=== PATIENT | male | born 2005 | race Caucasian/White ===

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

== ENCOUNTER 2025-06-18 12:09 | Outpatient (REF) | payer MEDICAID, SELFPAY ==
--- NOTE | ~2025-06-18 | XR_ITS ---
EXAMINATION: XR SHOULDER, RIGHT CLINICAL INFORMATION: pain with movement COMPARISON: None available. TECHNIQUE: AP external rotation, Grashey, scapular Y, and axillary views of the right shoulder. FINDINGS: The bones and soft tissues are normal. No fracture. Glenohumeral and acromioclavicular alignment is anatomic with normal joint space. No abnormal soft tissue calcifications. XR/XR shoulder RT min 2V IMPRESSION: Unremarkable right shoulder. Electronically signed by: Son Quarles MD 06/18/2025 12:36 PM EDT
--- NOTE | ~2025-06-18 | XR_ITS ---
EXAMINATION: XR CHEST CLINICAL INFORMATION: right chest wall pain COMPARISON: None available. TECHNIQUE: 2 views of the chest were obtained. FINDINGS: No significant abnormality is noted involving the heart, lungs, mediastinum, bony thorax or soft tissues. XR/XR chest 2V IMPRESSION: No acute disease Electronically signed by: Son Quarles MD 06/18/2025 12:36 PM EDT RP
--- OUTSIDE RECORDS SUMMARY | 2025-06-18 11:00 | XMS_ITS | Encounter Summary ---
Author Organization [employer] Address [address] [facility] [address] [place] [address] Care Team Providers Care Investigative Shopper Name Role Phone Elysia Arguello MD Primary Care Pro vider Reason for Visit * Reason Comments Sore Throat cough Encounter Details Date Type Department Care Team ([facility] st Contact Info) Description 06/18/2025 11:00 AM EDT Office Visit [facility] [place] [address] [place] [address] Acute pain of right shoulder (Primary Dx); [...] PM EDT Narrative 06/18/2025 12:39 PM EDT [address] [address] XRay Report Signed Patient: Fam Ortega MR#: [id number] : 2005 Acct:[id number] Age/Sex: 20 / M ADM Date: 06/18/25 Loc: HO.HHCX Attending Dr: Priyanka Bellamy Ordering Physician: Priyanka Bellamy Date of Service: 06/18/25 Procedure(s): XR chest 2V Accession Number(s): [id number] cc: Priyanka Bellamy Reason for Exam: right [...] 06/18/25 1236 DD/ 1227 TD/TT: 06/18/25 1227 Cabin Equipment Supervisor: Procedure Note Donotuseinterpreter, Image - 06/18/[address] [address] XRay Report Signed Patient: Fam Ortega SMR#: [id number] : 2005Acct:[id number] Age/Sex: 20 / MADM Date: 06/18/25 Loc: JONATHAN Attending Dr: Priyanka Bellamy Ordering Physician: Priyanka Bellamy Date of Service: 06/18/25 Procedure(s): XR chest 2V Accession Number(s): [id number] cc: Priyanka Bellamy Reason for Exam: right [...] 06/18/25 1236 DD/ 1227 TD/TT: 06/18/25 1227 Cabin Equipment Supervisor: us Priyanka Bellamy LEAD ANDROID DEVELOPER IMG XR PROCEDURES Final Result * XR Shoulder 2+ Views Right (06/18/2025 12:27 PM EDT) Anatomical Region Laterality Modality Upper Extremities, Shoulder Right Radi ographic Imaging 06/18/2025 12:2 7 PM EDT Narrative 06/18/2025 12:39 [place] [address] XRay Report Signed Patient: Fam Ortega MR#: [id number] : 2005 Acct:[id number] Age/Sex: 20 / M ADM Date: 06/18/25 Loc: JONATHAN Attending Dr: Priyanka Bellamy Ordering Physician: Priyanka Bellamy Date of Service: 06/18/25 Procedure(s): XR shoulder RT min 2V Accession Number(s): [id number] cc: Priyanka Bellamy Reason for Exam: pain [...] 06/18/25 1236 DD/ 1227 TD/TT: 06/18/25 1227 Cabin Equipment Supervisor: Procedure Note Donotuseinterpreter, Image - 06/18/2025 [place] [address] XRay Report Signed Patient: Fam Ortega [facility]#: [id number] : 2005Acct:[id number] Age/Sex: 20 / MADM Date: 06/18/25 Loc: HO.HHCX Attending Dr: Priyanka Bellamy Ordering Physician: Priyanka Bellamy Date of Service: 06/18/25 Procedure(s): XR shoulder RT min 2V Accession Number(s): [id number] cc: Priyanka Bellamy Reason for Exam: pain [...] 06/18/25 1236 DD/ 1227 TD/TT: 06/18/25 1227 Cabin Equipment Supervisor: us Priyanka Bellamy LEAD ANDROID DEVELOPER IMG XR PROCEDURES Final Result * POCT Rapid Influenza B ZIMMERMAN ID NOW (06/18/2025 11:49 AM EDT) Influenza B Negative Negative, Indeterminate [facility] QC Media Lot # [id number] [facility] Lot# Expiration Date [facility] Swab 06/18/2025 11:4 9 AM EDT Priyanka Bellamy LEAD ANDROID DEVELOPER POINT OF CARE TEST ENTER/EDIT O RDERABLES Final Result Performing Organization Address [facility]/ZIP Co de Phone Number [facility] [address] [place] [phone] * POCT Rapid Influenza A ZIMMERMAN ID NOW (06/18/2025 11:49 AM EDT) Influenza A Negative Negative, Indeterminate [facility] QC Media Lot # [id number] [facility] Lot# Expiration Date [facility] Swab 06/18/2025 11:4 9 AM EDT Priyanka Bellamy LEAD ANDROID DEVELOPER POINT OF CARE TEST ENTER/EDIT O RDERABLES Final Result Performing Organization Address [facility]/ZIP Co de Phone Number [facility] [address] [place] [phone] * POCT Rapid Strep A ZIMMERMAN ID NOW (06/18/2025 11:38 AM EDT) Rapid Strep A Screen Negative Negative, None Detected QC Media Lot # [id number] Lot# Expiration Date Swab 06/18/2025 11:3 8 AM EDT Priyanka Mia LEAD ANDROID DEVELOPER POINT OF CARE TEST ENTER/EDIT O RDERABLES Final Result * POCT Rapid Covid-19 BinaxNOW (06/18/2025 11:38 AM EDT) Rapid COVID Ag Negative QC Media Lot # [id number] Lot# Expiration Date Swab 06/18/2025 11:3 8 AM EDT Priyanka Bellamy LEAD ANDROID DEVELOPER POINT OF CARE TEST ENTER/EDIT O RDERABLES Final Result documented in this encounter Visit Diagnoses Diagnosis Acute pain of right shoulder- Primary Sore throat Acute pharyngitis Shortness of breath Right-sided chest wall pain Painful respiration documented in this encounter Additional Health Concerns Assessment Noted Time PHQ-9 Depression Total Score: 4 05/31/20 24 12:32 PM EDT documented as of this encounter Care Teams Investigative Shopper Relationship Specialty Start Date End Date Elysia Arguello MD [address] [place] [phone] PCP - General Internal Medicine 06/04/23 documented as of this encounter
--- OUTSIDE RECORDS SUMMARY | 2025-06-18 14:38 | XMS_ITS | Clinical Summary ---
Author Organization [employer] Address [address] [facility] 7 [place] [address] Care Team Providers Care Community Development Specialist Name Role Phone Elysia Arguello MD Primary Care Pro vider Allergies Active Allergy Reactions Criticality Noted Date Comments Amoxicillin Rash Low 05/31/2024 Medications ketoconazole (NIZOral) 2 % shampooIndicati ons:Seborrheic dermatitis Apply topically 2 (two) times a week. 120 mL Active Active Problems Problem Noted Date Diagnosed Date Folliculitis 11/17/2024 Seborrheic dermatitis 11/17/2024 Allergy to amoxicillin 06/01/2024 Healthcare maintenance 06/05/2023 Attention deficit hyperactivity disorder 023 Autism spectrum disorder 05/25/2023 Deviated nasal septum 05/25/2023 Posttraumatic stress disorder 05/25/2023 Resolved Problems Problem Noted Date Diagnosed Date Resolved Date Sore throat 03/15/2024 06/01/2024 Chronic bilateral low back p ain without sciatica 02/29/2024 06/01/2024 Encounters Date Type Department Care Team Description 06/18/2025 11:00 AM EDT Office Visit [facility] [address] [place] [address] Acute pain of right shoulder (Primary Dx); Sore throat; Shortness of breath; Right-sided chest wall pain 06/18/2025 Travel from Last 3 Months Immunizations Immunization Administration Dates Next Due DTaP 01/03/2009 DTaP, Unspecified 12/18/2005, 5,2004,05/30 HPV 9-Valent 05/23/2020,03/09/2019 Hep A, ped/adol, 2 dose 05/23/2020,03/09/2019 Hep B, Adolescent or Pediatric 2004 Hep B, Unspecified 2004,2004 Hep B, adult 03/24/2024,10/28/2023,09/22/2023 HiB, unspecified 2004,2004, 4 Hib (PRP-T) 12/18/2005 IPV 12/18/2008, 5,2004,05/30 Influenza injectable quadriv alent preservative free 06/04/2023,09/01/2017,06/24/2016,06/13,08/27/2014,08/16/2013,06/29/2012 ,05/24/2012 Influenza, seasonal, injecta ble, preservative free 05/31/2024 MMR 01/03/2009,03/26/2005 Meningococcal MCV4P ACYW-135 05/23/2020,03/23/20 16 Pfizer Covid-19 Vaccine 12+ 09/22/2023,,08/13/2021 Pneumococcal Conjugate PCV 13 03/26/2005 ,2004,2004,05/30 Tdap 2016 Varicella 01/03/2009,03/26/2005 Family History Medical History Relation Name Comments No Known Problems Brother No Known Problems Father No Known Problems Father's Brother No Known Problems Father's Sister No Known Problems Maternal Grandfather No Known Problems Maternal Grandmother No Known Problems Mother No Known Problems Mother's Brother No Known Problems Mother's Sister No Known Problems Other No Known Problems Paternal Grandfather No Known Problems Paternal Grandmother No Known Problems Sister Relation Name Status Comments Brother Father Father's Brother Father's Sister Maternal Grandfather Maternal Grandmother Mother Mother's Brother Mother's Sister Other Paternal Grandfather Paternal Grandmother Sister Social History Tobacco Use Types Packs/Day Years Used Date Smoking Tobacco: Never Smokeless Tobacco: Never Tobacco Cessation:Counseling Given: Not Answered Alcohol Use Standard Drinks/Week Comments Never 0 [...] not to disclose 2021 10:35 AM EDT Last Filed Vital Signs Vital Sign Reading [...] Mass Index 24.16 06/18/2025 11:33 AM EDT Plan of Treatment Health Maintenance Due Date Last Done Comments Disability Screening 2004 Alcohol/Substance Use Screening 2016 Family Planning (PISQ) 2019 Meningococcal B Vaccine (1 of 2 - Standard) 2020 SDOH Screening 05/28/2024 05/28/2023 Chlamydia and Gonorrhea Screening 07/27/2024 07/27/2023 COVID-19 Vaccine ( season) 2025 09/22/2023, 09/03/2021, 08/13/2021 Influenza Vaccine (#1) 2025 , 06/04/2023, 09/01/2017, Additional history exists Depression Screening 05/31/2025 05/31/2024, 05/31/20 24 Tobacco Screening 11/17/2025 11/17/2024 DTaP/Tdap/Td Vaccines (7 - Td or Tdap) 2026 2016, 01/03/2009, 12/18/2005, Additional history exists Zoster Vaccines (1 of 2) 2054 RSV Patients and Patients Aged 60 years or older (1 - 1-dose 75+ series) 2079 Pneumococcal Vaccine: Pediatrics (0 to 5 Years) and At-Risk Patients (6 to 49) Years Completed 03/26/2005, 2004, 2004, Additional history exists HIB Vaccines Completed 12/18/2005, 10/14, 2004, Additional history exists IPV Vaccines Completed 12/18/2008, 10/14, 2004, Additional history exists HPV Vaccines Completed 05/23/2020, 03/09/2019 Hepatitis A Vaccines Completed 05/23/2020, 03/09/20 19 Meningococcal Vaccine Completed 05/23/2020, 016 HIV Screening Completed 07/27/2023 Hepatitis C Screening Completed 07/27/2023 Hepatitis B Vaccines Completed 03/24/2024, 10/28/2023, 09/22/2023, Additional history exists RSV under 20 months Aged Out No longe r eligible based on patient's age to complete this topic Rotavirus Vaccines Aged Out No longer eligible based on patient's age to complete this topic Procedures Procedure Name Priority Date/Time Associated Diagnosis Comments XR CHEST 2 VIEWS Routine 06/18/2025 12:2 7 PM EDT Right-sided chest wall pain XR SHOULDER 2+ VIEWS RIGHT Routine 06/18/2025 12:27 PM EDT Acute pain of right shoulder POCT INFLUENZA B (ID NOW RAPID MOLECULAR) Routine 06/18/2025 11:49 AM EDT Sore throat POCT INFLUENZA A (ID NOW RAPID MOLECULAR) Routine 06/18/2025 11:49 AM EDT Sore throat POC ZIMMERMAN ID NOW STREP A Routine 06/18/2025 11:38 AM EDT Sore throat POCT RAPID COVID ANTIGEN Routine 06/18/2025 11:38 AM EDT Sore throat HEPATITIS C AB W/REFL TO HCV RNA, QN, PCR Routine 07/27/2023 10:08 AM EST Health care maintenance HIV 1/2 ANTIGEN/ANTIBODY, FOURTH GENERATION W/RFL Routine 07/27/2023 10:08 AM EST Health care maintenance CHLAMYDIA/N. GONORRHOEAE RNA, TMA, UROGENITAL Routine 07/27/2023 10:08 AM EST Health care maintenance from Last 3 Months or Most Recently Relevant to Health Maintenance Results * XR Shoulder 2+ Views Right (06/18/2025 12:27 PM EDT) Anatomical Region Laterality Modality Upper Extremities, Shoulder Right Radi ographic Imaging 06/18/2025 12:2 7 PM EDT Narrative 06/18/2025 12:39 PM EDT [address] [address] XRay Report Signed Patient: Fam Ortega MR#: [id number] : 2005 Acct:[id number] Age/Sex: 20 / M ADM Date: 06/18/25 Loc: JONATHAN Attending Dr: Priyanka Bellamy Ordering Physician: Priyanka Bellamy Date of Service: 06/18/25 Procedure(s): XR shoulder RT min 2V Accession Number(s): [id number] cc: Priyanka Bellamy Reason for Exam: pain [...] 06/18/25 1236 DD/ 1227 TD/TT: 06/18/25 1227 [employer] Driver: Procedure Note Donotuseinterpreter, Image - 06/18/2025 [place] [address] XRay Report Signed Patient: Fam Ortega [facility]#: [id number] : 2005Acct:[id number] Age/Sex: 20 / MADM Date: 06/18/25 Loc: ERIKX Attending Dr: Priyanka Bellamy Ordering Physician: Priyanka Bellamy Date of Service: 06/18/25 Procedure(s): XR shoulder RT min 2V Accession Number(s): [id number] cc: Priyanka Bellamy Reason for Exam: pain [...] 06/18/25 1236 DD/ 1227 TD/TT: 06/18/25 1227 [employer] Driver: us Priyanka Bellamy SHIP WIRER IMG XR PROCEDURES Final Result * XR Chest 2 Views (06/18/2025 12:27 PM EDT) Anatomical Region Laterality Modality Chest Radiographic Mary ging 06/18/2025 12:2 7 PM EDT Narrative 06/18/2025 12:39 [place] [address] XRay Report Signed Patient: Fam Ortega MR#: [id number] : 2005 Acct:[id number] Age/Sex: 20 / M ADM Date: 06/18/25 Loc: HO.HHCX Attending Dr: Priyanka Bellamy Ordering Physician: Priyanka Bellamy Date of Service: 06/18/25 Procedure(s): XR chest 2V Accession Number(s): [id number] cc: Priyanka Bellamy Reason for Exam: right [...] 06/18/25 1236 DD/ 1227 TD/TT: 06/18/25 1227 [employer] Driver: Procedure Note Christo, Image - 06/18/2025 [facility] [address] [place] [address] XRay Report Signed Patient: Fam Ortega SMR#: [id number] : 2005Acct:[id number] Age/Sex: 20 / MADM Date: 06/18/25 Loc: .HHCX Attending Dr: Priyanka Bellamy Ordering Physician: Priyanka Bellamy Date of Service: 06/18/25 Procedure(s): XR chest 2V Accession Number(s): [id number] cc: Priyanka Bellamy Reason for Exam: right [...] 06/18/25 1236 DD/ 1227 TD/TT: 06/18/25 1227 [employer] Driver: us Priyanka eBllamy SHIP WIRER IMG XR PROCEDURES Final Result * POCT Rapid Influenza B ZIMMERMAN ID NOW (06/18/2025 11:49 AM EDT) Influenza B Negative Negative, Indeterminate [facility] QC Media Lot # [id number] [facility] Lot# Expiration Date 42 [facility] Swab 06/18/2025 11:4 9 AM EDT us Priyanka Bellamy SHIP WIRER POINT OF CARE TEST ENTER/EDIT O RDERABLES Final Result Performing Organization Address City/[facility]/ZIP Co de Phone Number [facility] [address] [place] [phone] * POCT Rapid Influenza A ZIMMERMAN ID NOW (06/18/2025 11:49 AM EDT) Influenza A Negative Negative, Indeterminate [facility] QC Media Lot # [id number] [facility] Lot# Expiration Date 42 [facility] Swab 06/18/2025 11:4 9 AM EDT [facility] POINT OF CARE TEST ENTER/EDIT O RDERABLES Final Result Performing Organization Address [facility] Co de Phone Number [facility] [address] [place] [phone] * POCT Rapid Strep A ZIMMERMAN ID NOW (06/18/2025 11:38 AM EDT) Pathologist [facility] Rapid Strep A Screen Negative Negative, None Detected QC Media Lot # [id number] Lot# Expiration Date Swab 06/18/2025 11:3 8 AM EDT [facility] SHIP WIRER POINT OF CARE TEST ENTER/EDIT O RDERABLES Final Result * POCT Rapid Covid-19 BinaxNOW (06/18/2025 11:38 AM EDT) Rapid COVID Ag Negative QC Media Lot # [id number] Lot# Expiration Date ,326 Swab 06/18/2025 11:3 8 AM EDT [facility] SHIP WIRER POINT OF CARE TEST ENTER/EDIT O RDERABLES Final Result * Hepatitis C Antibody with Reflex to HCV, RNA, Quantitative, Real-Time PCR (07/27/2023 10:08 AM EST) Pathologist [facility] Hepatitis C Antibody Nonreactive Nonreactive [facility] Comment:Antibodies to HCV no t detected; does not exclude early acuteHCV infection. Blood Venous blood specimen / Unknown 07/27/2023 10:08 AM EST 07/27/2023 11:20 AM EST Elysia Coffman MD LAB BLOOD ORDERAB LES Final Result [facility] [address] [place] [phone] * Chlamydia/N. Gonorrhoeae RNA, TMA, Urogenitial (07/27/2023 10:08 AM EST) [facility] CT PCR NOT DETECTED Not Detect. [facility] Comment:A not detected test result does not exclude the possibilityof infection because test results can be affected byimproper specimen collection, concurrent antibiotic therapy,or the number of organisms in the specimen which may bebelow the sensitivity of the test. As with many diagnostictests, results from the Xpert CT/NG assay should beinterpreted in conjunction with other laboratory andclinical data available to the clinician.Xpert CT/NG performance has not been evaluated in patientsless than 14 years of age. The assay should not be used forthe evaluationof suspected sexual abuse or for other medico-legalindications. Additional testing is recommended in anycircumstance when false positive or false negative resultscould lead to adverse medical, social or psychologicalconsequences. NG PCR NOT DETECTED Not Detect. [facility] Comment:A not detected test result does not exclude the possibilityof infection because test results can be affected byimproper specimen collection, concurrent antibiotic therapy,or the number of organisms in the specimen which may bebelow the sensitivity of the test. As with many diagnostictests, results from the Xpert CT/NG assay should beinterpreted in conjunction with other laboratory andclinical data available to the clinician.Xpert CT/NG performance has not been evaluated in patientsless than 14 years of age. The assay should not be used forthe evaluationof suspected sexual abuse or for other medico-legalindications. Additional testing is recommended in anycircumstance when false positive or false negative resultscould lead to adverse medical, social or psychologicalconsequences. Urine Urethral structure / Unknown 07/27/2023 10:08 AM EST 07/27/2023 11:20 AM EST Narrative [facility] - 07/27/2023 1:26 PM EST Urine us Elysia Coffman MD LAB MICROBIOLOGY - GENERAL ORDERABLES Final Result Performing Organization Address City/[facility]/ZIP Co de Phone Number [facility] [address] [place] [phone] * HIV-1/2 Antigen and Antibodies, Fourth Generation, with Reflexes (07/27/2023 10:08 AM EST) Pathologist [facility] HIV AB/AG Nonreactive Nonreactive [facility] Comment:HIV-1 p24 Ag and/or HIV-1/HIV-2 Ab not detected.A test result that is nonreactive does not exclude thepossibility of exposure to or infection with HIV-1 and/orHIV-2. Nonreactive results in this assay for individualswith prior exposure to HIV-1 and/or HIV-2 may be due toantigen and antibody levels that are below the limit ofdetection of this assay.The [employer] HIV Ag/Ab Combo assay result andsupplemental assay results should be interpreted inconjunction with the patient's clinical presentation,history and other laboratory results. If the results areinconsistent with clinical evidence, additional testing issuggested to confirm the result. Blood Venous blood specimen / Unknown 07/27/2023 10:08 AM EST 07/27/2023 11:20 AM EST us Elysia Coffman MD LAB BLOOD ORDERAB LES Final Result Performing Organization Address City/[facility]/ZIP Co de Phone Number [facility] [address] [place] [phone] from Last 3 Months or Most Recently Relevant to Health Maintenance Insurance [facility] C3 Care Teams Community Development Specialist Relationship Specialty Start Date End Date Elysia Arguello MD [address] [place] [phone] PCP - General Internal Medicine 06/04/23
--- OUTSIDE RECORDS SUMMARY | 2025-06-18 14:38 | XMS_ITS | Encounter Summary ---
Author Organization [employer] Address [address] [facility] [address] [place] [address] Care Team Providers Care Employee Communications Specialist Name Role Phone Elysia Arguello MD Primary Care Pro vider Encounter Details Date Type Department Care Team (Latest Contact Info) Description 06/18/2025 Travel Social History Tobacco Use Types Packs/Day Years [...] AM EDT documented as of this encounter Plan of Treatment Not on file documented as of this encounter Visit Diagnoses Not on filedocumented in this encounter Additional Health Concerns Assessment Noted Time PHQ-9 Depression Total Score: 4 05/31/20 24 12:32 PM EDT documented as of this encounter Care Teams Employee Communications Specialist Relationship Specialty Start Date End Date Elysia Arguello MD [address] [place] [phone] PCP - General Internal Medicine 06/04/23 documented as of this encounter
== END 2025-06-18 12:10 | disposition home or self-care (01) ==
LOC: HO.HHCX 12:09
PROVIDERS: Visit Provider Nurse Practitioner
DX: M25.511 Pain in right shoulder (principal); R07.89 Other chest pain
CPT/HCPCS: 71046; 73030

== ENCOUNTER → 2025-06-18 12:10 | Outpatient (BNV) | payer MEDICAID, SELFPAY | PROVIDERS: Visit Provider Radiology Diagnostic Radiology | DX: R07.89 Other chest pain (principal); M25.511 Pain in right shoulder | CPT/HCPCS: 71046; 73030 ==

== ENCOUNTER 2025-06-18 23:39 | Inpatient (IN) | payer OTHER, SELFPAY ==
--- NOTE | ~2025-06-18 | XR_ITS ---
CLINICAL HISTORY: chest pain Exam: PA and lateral views of the chest. Comparison: June 18, 2025. Findings: Lungs are well inflated. Mediastinal contours, cardiac silhouette, and pulmonary vasculature are within normal limits. Lungs are clear. No pleural effusion. Impression: No acute findings. This document has been electronically signed by: Frankie Lara MD on 06/19/2025 01:38:59
--- OUTSIDE RECORDS SUMMARY | 2025-06-18 11:00 | XMS_ITS | Encounter Summary ---
Author Organization [employer] Address [address] [facility] 7[address] [place] [address] Care Team Providers Care Engineering Production Liaison Name Role Phone Elysia Arguello MD Primary Care Pro vider Reason for Visit * Reason Comments Sore Throat cough Encounter Details Date Type Department Care Team ([facility] st Contact Info) Description 06/18/2025 11:00 AM EDT Office Visit [facility] [place] [address] [place] [address] Acute pain of right shoulder (Primary Dx); Sore throat; Shortness of breath; Right-sided chest wall pain Social History Tobacco Use Types Packs/Day Years Used Date Smoking Tobacco: Never Smokeless Tobacco: Never Alcohol Use Standard Drinks/Week Comments Never 0 (1 standard drink = 0.6 oz pur e alcohol) Depression Answer Date Recorded Patient Health Questionnaire-9 Score 4 05/31/2024 Patient Health Questionnaire-9 Score 4 05/31/2024 Last PHQ-9: Questionnaire Data Not on file 0 05/31/2024 Housing Stability Answer Date Recorded What is your housing situation today? I have rick cristina 07/07/[address] you li ve. Do you have problems with any of the following? None of the above 07/07/2023 Food Insecurity Answer Date Recorded Within the past 12 months, y ou worried that your food would run out before you got money to buy more: Never True 07/07/2023 Within the past 12 months,th e food you bought just didn't last and you didn't have enough money to get more: Never True Transportation Answer Date Recorded In the past 12 months, has l ack of transportation kept you from medical appts, meetings, work or from getting things needed for daily living? No 07/07/2023 Utilities Answer Date Recorded In the past 12 months, has t he electric, gas, oil or water company threatened to shut off services in your home? No 07/07/2023 Depression Answer Date Recorded Patient Health Questionnaire-2 Score 0 05/31/2024 Sex and Gender Information Value Date Recorded Sex Assigned at Male 07/13/2022 10:35 AM EDT Legal Sex Male 10:35 AM EDT Gender Identity Male 07/13/2022 10:35 AM EDT Sexual Orientation Choose not to disclose 2021 10:35 AM EDT documented as of this encounter Last Filed Vital Signs Vital Sign Reading Time Taken Comments Blood Pressure 136/88 06/18/2025 11:33 AM EDT Pulse 106 06/18/2025 11:33 AM EDT Temperature 37.3 C (99.1 F) 06/18/2025 11:33 AM EDT Respiratory Rate 25 06/18/2025 11:33 AM EDT Oxygen Saturation 97% 06/18/2025 11:33 AM EDT Inhaled Oxygen Concentration - - Weight 85.4 kg (188 lb 3.2 oz) 06/18/2025 11:33 AM EDT Height 188 cm (6' 2 ) 06/18/2025 11:33 AM EDT Body Mass Index 24.16 06/18/2025 11:33 AM EDT documented in this encounter Plan of Treatment Not on file documented as of this encounter Procedures Procedure Name Priority Date/Time Associated Diagnosis Comments XR SHOULDER 2+ VIEWS RIGHT Routine 06/18/2025 12:27 PM EDT Acute pain of right shoulder XR CHEST 2 VIEWS Routine 06/18/2025 12:2 7 PM EDT Right-sided chest wall pain POCT INFLUENZA B (ID NOW RAPID MOLECULAR) Routine 06/18/2025 11:49 AM EDT Sore throat POCT INFLUENZA A (ID NOW RAPID MOLECULAR) Routine 06/18/2025 11:49 AM EDT Sore throat POC ZIMMERMAN ID NOW STREP A Routine 06/18/2025 11:38 AM EDT Sore throat POCT RAPID COVID ANTIGEN Routine 06/18/2025 11:38 AM EDT Sore throat documented in this encounter Results * XR Chest 2 Views (06/18/2025 12:27 PM EDT) Anatomical Region Laterality Modality Chest Radiographic Mary ging 06/18/2025 12:2 7 PM EDT Narrative 06/18/2025 12:39 PM EDT [address] [address] XRay Report Signed Patient: Fam Ortega MR#: [id number] : 2005 Acct:[id number] Age/Sex: 20 / M ADM Date: 06/18/25 Loc: HO.HHCX Attending Dr: Priyanka Bellamy Ordering Physician: Priyanka Bellamy Date of Service: 06/18/25 Procedure(s): XR chest 2V Accession Number(s): [id number] cc: Priyanka Bellamy Reason for Exam: right chest wall pain EXAMINATION: XR CHEST CLINICAL INFORMATION: right chest wall pain COMPARISON: None available. TECHNIQUE: 2 views of the chest were obtained. FINDINGS: No significant abnormality is noted involving the heart, lungs, mediastinum, bony thorax or soft tissues. XR/XR chest 2V IMPRESSION: No acute disease Electronically signed by: Son Quarles MD 06/18/2025 12:36 PM EDT Dictated By: Son Quarles MD Signed By: <Electronically signed by Son Quarles MD in OV> 06/18/25 1236 DD/ 1227 TD/TT: 06/18/25 1227 Gallery Director: Procedure Note Donotuseinterpreter, Image - 06/18/[address] [address] XRay Report Signed Patient: Fam Ortega SMR#: [id number] : 2005Acct:[id number] Age/Sex: 20 / MADM Date: 06/18/25 Loc: JONATHAN Attending Dr: Priyanka Bellamy Ordering Physician: Priyanka Bellamy Date of Service: 06/18/25 Procedure(s): XR chest 2V Accession Number(s): [id number] cc: Priyanka Bellamy Reason for Exam: right chest wall pain EXAMINATION: XR CHEST CLINICAL INFORMATION: right chest wall pain COMPARISON: None available. TECHNIQUE: 2 views of the chest were obtained. FINDINGS: No significant abnormality is noted involving the heart, lungs, mediastinum, bony thorax or soft tissues. XR/XR chest 2V IMPRESSION: No acute disease Electronically signed by: Son Quarles MD 06/18/2025 12:36 PM EDT Dictated By: Son Quarles MD Signed By: <Electronically signed by Son Quarles MD in OV> 06/18/25 1236 DD/ 1227 TD/TT: 06/18/25 1227 Gallery Director: us Priyanka Bellamy KITCHEN MECHANIC IMG XR PROCEDURES Final Result * XR Shoulder 2+ Views Right (06/18/2025 12:27 PM EDT) Anatomical Region Laterality Modality Upper Extremities, Shoulder Right Radi ographic Imaging 06/18/2025 12:2 7 PM EDT Narrative 06/18/2025 12:39 [place] [address] XRay Report Signed Patient: Fam Ortega MR#: [id number] : 2005 Acct:[id number] Age/Sex: 20 / M ADM Date: 06/18/25 Loc: JONATHAN Attending Dr: Priyanka Bellamy Ordering Physician: Priyanka Bellamy Date of Service: 06/18/25 Procedure(s): XR shoulder RT min 2V Accession Number(s): [id number] cc: Priyanka Bellamy Reason for Exam: pain with movement EXAMINATION: XR SHOULDER, RIGHT CLINICAL INFORMATION: pain with movement COMPARISON: None available. TECHNIQUE: AP external rotation, Grashey, scapular Y, and axillary views of the right shoulder. FINDINGS: The bones and soft tissues are normal. No fracture. Glenohumeral and acromioclavicular alignment is anatomic with normal joint space. No abnormal soft tissue calcifications. XR/XR shoulder RT min 2V IMPRESSION: Unremarkable right shoulder. Electronically signed by: Son Quarles MD 06/18/2025 12:36 PM EDT RP Dictated By: Son Quarles MD Signed By: <Electronically signed by Son Quarles MD in OV> 06/18/25 1236 DD/ 1227 TD/TT: 06/18/25 1227 Gallery Director: Procedure Note Donotuseinterpreter, Image - 06/18/2025 [place] [address] XRay Report Signed Patient: Fam Ortega [facility]#: [id number] : 2005Acct:[id number] Age/Sex: 20 / MADM Date: 06/18/25 Loc: HO.HHCX Attending Dr: Priyanka Bellamy Ordering Physician: Priyanka Bellamy Date of Service: 06/18/25 Procedure(s): XR shoulder RT min 2V Accession Number(s): [id number] cc: Priyanka Bellamy Reason for Exam: pain with movement EXAMINATION: XR SHOULDER, RIGHT CLINICAL INFORMATION: pain with movement COMPARISON: None available. TECHNIQUE: AP external rotation, Grashey, scapular Y, and axillary views of the right shoulder. FINDINGS: The bones and soft tissues are normal. No fracture. Glenohumeral and acromioclavicular alignment is anatomic with normal joint space. No abnormal soft tissue calcifications. XR/XR shoulder RT min 2V IMPRESSION: Unremarkable right shoulder. Electronically signed by: Son Quarles MD 06/18/2025 12:36 PM EDT RP Dictated By: Son Quarles MD Signed By: <Electronically signed by Son Quarles MD in OV> 06/18/25 1236 DD/ 1227 TD/TT: 06/18/25 1227 Gallery Director: us Priyanka Bellamy KITCHEN MECHANIC IMG XR PROCEDURES Final Result * POCT Rapid Influenza B ZIMMERMAN ID NOW (06/18/2025 11:49 AM EDT) Influenza B Negative Negative, Indeterminate [facility] QC Media Lot # [id number] [facility] Lot# Expiration Date [facility] Swab 06/18/2025 11:4 9 AM EDT Priyanka Bellamy KITCHEN MECHANIC POINT OF CARE TEST ENTER/EDIT O RDERABLES Final Result Performing Organization Address [facility]/ZIP Co de Phone Number [facility] [address] [place] [phone] * POCT Rapid Influenza A ZIMMERMAN ID NOW (06/18/2025 11:49 AM EDT) Influenza A Negative Negative, Indeterminate [facility] QC Media Lot # [id number] [facility] Lot# Expiration Date [facility] Swab 06/18/2025 11:4 9 AM EDT Priyanka Bellamy KITCHEN MECHANIC POINT OF CARE TEST ENTER/EDIT O RDERABLES Final Result Performing Organization Address [facility]/ZIP Co de Phone Number [facility] [address] [place] [phone] * POCT Rapid Strep A ZIMMERMAN ID NOW (06/18/2025 11:38 AM EDT) Rapid Strep A Screen Negative Negative, None Detected QC Media Lot # [id number] Lot# Expiration Date Swab 06/18/2025 11:3 8 AM EDT Priyanka Mia KITCHEN MECHANIC POINT OF CARE TEST ENTER/EDIT O RDERABLES Final Result * POCT Rapid Covid-19 BinaxNOW (06/18/2025 11:38 AM EDT) Rapid COVID Ag Negative QC Media Lot # [id number] Lot# Expiration Date Swab 06/18/2025 11:3 8 AM EDT Priyanka Bellamy KITCHEN MECHANIC POINT OF CARE TEST ENTER/EDIT O RDERABLES Final Result documented in this encounter Visit Diagnoses Diagnosis Acute pain of right shoulder- Primary Sore throat Acute pharyngitis Shortness of breath Right-sided chest wall pain Painful respiration documented in this encounter Additional Health Concerns Assessment Noted Time PHQ-9 Depression Total Score: 4 05/31/20 24 12:32 PM EDT documented as of this encounter Care Teams Engineering Production Liaison Relationship Specialty Start Date End Date Elysia Arguello MD [address] [place] [phone] PCP - General Internal Medicine 06/04/23 documented as of this encounter
--- NOTE | 2025-06-18 23:58 | ECG_ITS ---
Test Reason : CP Blood Pressure : */* mmHG Vent. Rate : 91 BPM Atrial Rate : 91 BPM P-R Int : 152 ms QRS Dur : 82 ms QT Int : 352 ms P-R-T Axes : 59 72 16 degrees QTcB Int : 432 ms Normal sinus rhythm with sinus arrhythmia Normal ECG No previous ECGs available Referred By: Generic ED Physician Electronically Signed By: AMALIA LEAHY MD
[2025-06-19] VITALS (8 sets, daily range): BP systolic 119–140; BP diastolic 70–89; PULSE 90–128; RESP 16–20; TEMP 36.1–37.1; O2SAT 96–98; BMI 24.4; BMI 24.1
[2025-06-19 01:07] LABS: MANUAL DIFF FLAG NO
[2025-06-19 01:08] LABS: Hematocrit 43.9 % (42.0-52.0); Hemoglobin 15.4 g/dl (14.0-18.0); Imm Gran Abs Auto 0.03 X10*3/uL (0.00-0.03); Imm Gran Pct Auto 0.4 % (0.0-0.4); Lymphocytes Absolute Auto 1.7 X10*3/uL (1.2-4.9); Mean Corpuscular HGB Conc 35.1 g/dl (31.0-36.0); Mean Corpuscular Hemoglobin 30.3 pg (27.0-33.0); Mean Corpuscular Volume 86.2 fL (80.0-98.0); NRBC Abs Auto 0.000 X10*3/uL (0.0-0.012); NRBC Pct Auto 0.0 /100WBC (0.0-0.2); Platelet Count 322 X10*3/uL (160-400); Red Blood Count 5.09 X10*6/uL (4.60-5.80); White Blood Count 8.2 X10*3/uL (4.8-10.8)
[2025-06-19 01:21] LABS: Alanine Aminotransferase 18 U/L (0-40); Albumin Level 5.2 g/dL (3.5-5.0); Alkaline Phosphatase 58 U/L (39-117); Anion Gap 17 (12-20); Aspartate Amino Transferase 25 U/L (5-37); Blood Urea Nitrogen 16 mg/dL (9-16); Calcium 9.8 mg/dL (8.4-10.2); Carbon Dioxide 25 mmol/L (22-29); Chloride 103 mmol/L (96-108); Creatinine Clr Calc Pharmacy 124.5; Estimated Glomerular Filt Rate > 60; Potassium 3.6 mmol/L (3.3-5.1); Sodium 141 mmol/L (135-145); Total Protein 8.0 g/dL (6.5-8.0)
[2025-06-19 01:29] LABS: Troponin-I High Sensitivity < 2.7 ng/L (<3.5-35.0)
--- NOTE | 2025-06-19 02:25 | ED.CHESTPAIN ---
HPI - Chest Pain General Chief Complaint: Chest Pain Stated Complaint: CHEST & THROAT TIGHTNESS Time Seen by Provider: 06/19/25 01:56 Source: patient Limitations: no limitations History of Present Illness ED Provider: Sandie Allen PA-C HPI narrative: 20-year-old male with self report of history of anxiety, depression, ADHD, who presents with chest pain. Patient states he was smoking marijuana yesterday, he has subsequently developed excessive salivation and right upper chest discomfort. The pain is described as a ?pinching sensation?. Patient is extremely anxious at this time, difficult to obtain history, the patient is apprehensive about engaging in conversation. Related Data Home Medications ?Medication ?Instructions ?Recorded ?Confirmed No Known Home Meds 06/19/25 06/19/25 Allergies Allergy/AdvReac Type Severity Reaction Status Date / Time amoxicillin (AMOXICILLIN) Allergy Unknown HIVES Verified 06/19/25 00:10 Review of Systems Review of Systems: Yes all other systems are reviewed and are negative Constitutional: Constitutional: Denies fatigue and Denies fever(s) Cardiovascular: Cardiovascular: Reports chest pain and Denies dyspnea Respiratory: Respiratory: Denies dyspnea Gastrointestinal: Gastrointestinal: Reports dyspepsia and Reports nausea Psychiatric: Psychiatric: Reports anxiety and Denies suicidal ideation Endocrine: Endocrine: Denies fatigue PMFSH Past Medical History Attestation statement: The following information was validated with the patient. Social History Social History Household Members: None Housing: Other Housing Other:: [facility] supported housing Do you presently have visiting nurse or other home services: No Patient Tobacco Use Status: Never used Tobacco Smoked in Last 30 Days: Yes Second Hand Smoke Exposure: No Currently Displaying Signs/Symptoms of Drug Intoxication Withdrawal: No Have you been hit, kicked, punched, or otherwise hurt by someone within the past year? If so, by whom?: No Do you feel safe in your current relationship?: No Current Relationship Is there a partner from a previous relationship who is making you feel unsafe now?: No Are you made to feel afraid or neglected: No Advance Directives: No Advance Directives Information Provided: Yes Do you have thoughts of harming others: None Do you have a plan to hurt others: No Plan Recently lost weight without trying: No Eating poorly because of decreased appetite: No Nutrition Risks: No Nutritional Risk Poor oral hygiene: No Physical Exam Vital Signs: Vital Signs: Last Vital Signs Temp 97 F 06/19/25 20:31 Pulse 120 H 06/19/25 20:31 Resp 16 06/19/25 20:31 BP 128/71 06/19/25 20:31 Pulse Ox 96 06/19/25 16:55 O2 Del Method Room Air 06/19/25 09:47 BMI result Body Mass Index 24.4 Const: Other: Alert, disheveled, extremely anxious Orientation/consciousness: patient oriented x3 Resp: Effort & Inspection: normal respiratory effort Cardio: Other: Normal peripheral perfusion Skin: Other: Warm dry no rash Neuro: General: patient oriented x3, gait normal, no focal motor deficits and CN's II-XI intact bilaterally Psych: Other: Anxious, appears as if he is having a panic attack, disorganized thought process Course Reevaluation(s) Reevaluation #1: Time: 06:12 Date: 06/19/25 Provider: TIFF Jesus Patient in physician observation for psychiatric evaluation.? No acute events reported overnight. No current complaints. VS stable.? Patient is in bed search status/pending CARE team evaluation. Will continue to monitor. Reevaluation #2: physician observation ended admitted inpatient 06/19/25 ION 113pm Medications Administered Generic Name Dose Route Start Last Admin Trade Name Freq PRN Reason Stop Dose Admin Lorazepam 1 mg 06/19/25 17:42 06/19/25 17:53 Lorazepam 1 Mg Tablet PO 1 mg TID PRN Administration severe anxiety Mirtazapine 7.5 mg 06/19/25 21:00 06/19/25 21:43 Mirtazapine 7.5 Mg Tablet PO 7.5 mg BEDTIME TAMMY Administration Ondansetron HCl 4 mg 06/19/25 17:45 06/19/25 19:00 Ondansetron Odt 4 Mg Tab.Rapdis TRANSLINGU 4 mg Q6H PRN Administration Nausea and Vomiting Discontinued Medications Generic Name Dose Route Start Last Admin Trade Name Freq PRN Reason Stop Dose Admin Sucralfate 1 gm 06/19/25 02:41 06/19/25 02:50 Sucralfate Oral Suspension 1 Gm/10 Ml Oral.Susp PO 06/19/25 02:42 1 gm ONCE ONE Administration Medical Decision Making Medical Decision Making MDM Narrative: 20-year-old male with self report of history of anxiety, depression, ADHD, who presents with chest pain. Patient states he was smoking marijuana yesterday, he has subsequently developed excessive salivation and right upper chest discomfort. The pain is described as a ?pinching sensation?. Patient is extremely anxious at this time, difficult to obtain history, the patient is apprehensive about engaging in conversation. Problem: Psychiatric illness, use of marijuana History: Per patient I have considered the following differential diagnoses: Anxiety, panic attack, decompensated psychiatric illness, ACS , adverse reaction to marijuana Plan: Initially, I felt that the patient was simply having adverse reaction to the marijuana that he smoked. He likely is to some degree. In regard to the chest pain, this is not cardiac in nature, he has no risk factors for coronary artery disease, with the his screening labs, troponin EKG were obtained and a chest x-ray. It has been difficult to obtain history from the patient, he is apprehensive about speaking, about answering questions. In my opinion he appears quite decompensated, and emotionally distressed. When asked if he is having thoughts of self-harm, the patient pauses for a moment then states ?that would be morris I would not hurt myself?. Patient's thought process is somewhat disorganized, he will randomly make statements, while answering questions. He is now verbalizing that he has had suicidal ideation in the past. I have offered care team consult for the patient, he is willing to stay for assessment. The patient apparently was on medication for his psychiatric conditions at 1 point, he stopped them due to not liking the way they made him feel. He states that his medication he took for the depression worsened his anxiety, he will be referred to the care team. I have independently reviewed the following tests: Labs: No leukocytosis, not anemic, no electrolyte abnormality, troponin less than 2.7, U tox positive for marijuana, ethanol less than 10 EKG: Normal sinus rhythm, rate of 91, no ischemic changes no ectopy Chest x-ray:Lungs are well inflated. Mediastinal contours, cardiac silhouette, and pulmonary vasculature are within normal limits. Lungs are clear. No pleural effusion. Impression: No acute findings. Differential Diagnosis Differential Diagnoses: The differential diagnosis associated with the presentation includes See medical decision-making Admission/Observation Consideration of admission/observation: Escalation of care including admission/observation considered May require inpatient level of care Consult Healthcare Provider Management of the patient was discussed with: Behavioral Health Provider Lab Data [facility] Lab Attestation statement: I reviewed the patient's lab results. 06/19/25 00:59 06/19/25 00:59 Labs: Lab Results 06/19/25 06/19/25 Range/Units 00:59 04:30 WBC 8.2 (4.8-10.8) X10*3/uL RBC 5.09 (4.60-5.80) X10*6/uL Hgb 15.4 (14.0-18.0) g/dl Hct 43.9 (42.0-52.0) % MCV 86.2 (80.0-98.0) fL MCH 30.3 (27.0-33.0) pg MCHC 35.1 (31.0-36.0) g/dl RDW 11.8 (11.0-16.0) % Plt Count 322 (160-400) X10*3/uL MPV 9.2 L (9.4-12.4) fL Immature Gran % (Auto) 0.4 (0.0-0.4) % Neut % (Auto) 66.3 (45-73) % Lymph % (Auto) 20.8 (20-40) % [place] % (Auto) 11.9 H (2-11) % Eos % (Auto) 0.2 (0-4) % Baso % (Auto) 0.4 (0-2) % Lymph # (Auto) 1.7 (1.2-4.9) X10*3/uL [place] # (Auto) 1.0 (0.1-1.2) X10*3/uL Eos # (Auto) 0.0 (0.0-0.4) X10*3/uL Baso # (Auto) 0.0 (0.0-0.2) X10*3/uL Abs Immat Gran (auto) 0.03 (0.00-0.03) X10*3/uL Absolute Neuts (auto) 5.4 (2.0-8.3) x10*3/uL Absolute Nucleated RBC 0.000 (0.0-0.012) X10*3/uL Nucleated RBC % (auto) 0.0 (0.0-0.2) /100WBC Sodium 141 (135-145) mmol/L Potassium 3.6 (3.3-5.1) mmol/L Chloride 103 (96-108) mmol/L Carbon Dioxide 25 (22-29) mmol/L Anion Gap 17 (12-20) BUN 16 (9-16) mg/dL Creatinine 1.06 (0.5-1.4) mg/dL Estim Creat Clear Calc 124.5 Estimated GFR > 60 Random Glucose 85 (60-115) mg/dL Calcium 9.8 (8.4-10.2) mg/dL Total Bilirubin 1.1 H (0.0-1.0) mg/dL AST 25 (5-37) U/L ALT 18 (0-40) U/L Alkaline Phosphatase 58 (39-117) U/L Troponin I High Sens < 2.7 (<3.5-35.0) ng/L Total Protein 8.0 (6.5-8.0) g/dL Albumin 5.2 H (3.5-5.0) g/dL Urine Color Yellow Urine Appearance Clear Urine pH 6.0 (5.0-9.0) Ur Specific [place] >= 1.030 H (1.005-1.025) Urine Protein 30 (1+) H (Neg-Trace) mg/dL Urine Glucose (UA) Negative (Negative) mg/dL Urine Ketones >=80 (Negative) mg/dL Urine Blood Negative (Negative) Urine Nitrite Negative (Negative) Ur Leukocyte Esterase Negative (Negative) Urine RBC 0-2 (0-2) /HPF Urine WBC 0-5 (0-5) /HPF Ur Squamous Epith Cells 0-2 (0-2) /HPF Urine Bacteria None Seen (None Seen) Hyaline Casts 0-2 (0-2) /LPF Urine Opiates Screen Not Detected (Not Detect) Ur Buprenorphine Scrn Not Detected (Not Detect) ng/mL Ur Oxycodone Screen Not Detected (Not Detect) ng/mL Urine Methadone Screen Not Detected (Not Detect) ng/mL Urine Fentanyl Screen Not Detected (Not Detect) Ur Barbiturates Screen Not Detected (Not Detect) Ur Phencyclidine Scrn Not Detected (Not Detect) Ur Amphetamines Screen Not Detected (Not Detect) U Benzodiazepines Scrn Not Detected (Not Detect) Urine Cocaine Screen Not Detected (Not Detect) U Marijuana (THC) Screen POSITIVE H (Not Detect) Ethyl Alcohol < 10 mg/dL Independent Interpretation I performed an independent interpretation of an: EKG Radiology Impression Discussion of test interpretation with radiology: I have reviewed the radiologist's reading. Discharge Plan Discharge Clinical Impression: Atypical chest pain, Panic attack, Anxiety Patient Disposition: Admitted As Inpatient Interventions: Admission Worksheet (ED) Last Done: 06/19/25 16:15 Discharge Date/Time: 06/19/25 16:51
--- OUTSIDE RECORDS SUMMARY | 2025-06-19 02:31 | XMS_ITS | Clinical Summary ---
Author Organization [employer] Address [address] [facility] [address] [place] [address] Care Team Providers Care Wax Pattern Repairer Name Role Phone Elysia Arguello MD Primary [...] Description 06/18/2025 11:00 AM EDT Office Visit [facility] [address] [place] [phone] Acute pain of right shoulder (Primary Dx); Sore throat; Shortness of breath; Right-sided chest wall pain 06/18/2025 Results Follow-Up [facility] [address] [place] [address] Priyanka Bellamy NP XR Shoulder 2+ Views Right 06/18/2025 Travel from Last 3 Months Immunizations [...] is your housing situation today? I have rickveronica cristina 07/07/[address] you [...] PM EDT Narrative 06/18/2025 12:39 PM EDT [place] [address] XRay Report Signed Patient: Fam Otrega MR#: [id number] : 2005 Acct:[id number] Age/Sex: 20 / M ADM Date: 06/18/25 Loc: JONATHAN Attending Dr: Pryianka Bellamy Ordering Physician: Priyanka Bellamy Date of Service: 06/18/25 Procedure(s): XR shoulder RT min 2V Accession Number(s): [id number] cc: Priyanka Bellamy Reason for Exam: pain [...] 06/18/25 1236 DD/ 1227 TD/TT: 06/18/25 1227 Account Administrator: Procedure Note Donotuseinterpreter, Image - 06/18/[address] [address] XRay Report Signed Patient: Fam Ortega SMR#: [id number] : 2005Acct:[id number] Age/Sex: 20 / MADM Date: 06/18/25 Loc: JONATHAN Attending Dr: Priyanka Bellamy Ordering Physician: Priyanka Bellamy Date of Service: 06/18/25 Procedure(s): XR shoulder RT min 2V Accession Number(s): [id number] cc: Priyanka Bellamy Reason for Exam: pain [...] 06/18/25 1236 DD/ 1227 TD/TT: 06/18/25 1227 Account Administrator: Priyanka Bellamy TRAINING ASSOCIATE IMG XR PROCEDURES Final Result * XR Chest 2 Views (06/18/2025 12:27 PM EDT) Anatomical Region Laterality Modality Chest Radiographic Mary ging 06/18/2025 12:2 7 PM EDT Narrative 06/18/2025 12:39 [place] [address] XRay Report Signed Patient: Fam Ortega MR#: [id number] : 2005 Acct:[id number] Age/Sex: 20 / M ADM Date: 06/18/25 Loc: HO.HHCX Attending Dr: Priyanka Bellamy Ordering Physician: Priyanka Bellamy Date of Service: 06/18/25 Procedure(s): XR chest 2V Accession Number(s): [id number] cc: Priyanka Bellamy Reason for Exam: right [...] Quarles MD in OV> 06/18/25 1236 DD/ TD/TT: 06/18/251226 Account Administrator: Procedure Note Donotuseinterpreter, Image - 06/18/[address] [address] XRay Report Signed Patient: Fam Ortega SMR#: [id number] : 2005Acct:[id number] Age/Sex: 20 / MADM Date: 06/18/25 Loc: HO.HHCX Attending Dr: Priyanka Bellamy Ordering Physician: Priyanka Bellamy Date of Service: 06/18/25 Procedure(s): XR chest 2V Accession Number(s): [id number] cc: Priyanka Bellamy Reason for Exam: right [...] in OV> 06/18/25 1236 DD/ 1227 TD/TT: 06/18/257 Account Administrator: Priyanka Bellamy NP IMG XR PROCEDURES Final Result * POCT Rapid Influenza B ZIMMERMAN ID NOW (06/18/2025 11:49 AM EDT) Influenza B Negative Negative, Indeterminate [facility] QC Media Lot # [id number] [facility] Lot# Expiration Date [facility] Swab 06/18/2025 11:4 9 AM EDT us Priyanka Sultana TRAINING ASSOCIATE POINT OF CARE TEST ENTER/EDIT O RDERABLES Final Result Performing Organization Address [facility]/ZIP Co de Phone Number [facility] [address] [place] [phone] * POCT Rapid Influenza A ZIMMERMAN ID NOW (06/18/2025 11:49 AM EDT) Influenza A Negative Negative, Indeterminate [facility] QC Media Lot # [id number] [facility] Lot# Expiration Date [facility] Swab 06/18/2025 11:4 9 AM EDT us Priyanka Sultana TRAINING ASSOCIATE POINT OF CARE TEST ENTER/EDIT O RDERABLES Final Result Performing Organization Address [facility] Co de Phone Number [facility] [address] [place] [phone] * POCT Rapid Strep A ZIMMERMAN ID NOW (06/18/2025 11:38 AM EDT) Pathologist [facility] Rapid Strep A Screen Negative Negative, None Detected QC Media Lot # [id number] Lot# Expiration Date Swab 06/18/2025 11:3 8 AM EDT us Priyanka Sultana TRAINING ASSOCIATE POINT OF CARE TEST ENTER/EDIT O RDERABLES Final Result * POCT Rapid Covid-19 BinaxNOW (06/18/2025 11:38 AM EDT) Rapid COVID Ag Negative QC Media Lot # [id number] Lot# Expiration Date 8,326 Swab 06/18/2025 11:3 8 AM EDT Priyanka Sultana TRAINING ASSOCIATE POINT OF CARE TEST ENTER/EDIT O RDERABLES Final Result * Hepatitis C Antibody with Reflex to HCV, RNA, Quantitative, Real-Time PCR (07/27/2023 10:08 AM EST) Pathologist [facility] Hepatitis C Antibody Nonreactive Nonreactive [facility] Comment:Antibodies to HCV no t detected; does not exclude early acuteHCV infection. Blood Venous blood specimen / Unknown 07/27/2023 10:08 AM EST 07/27/2023 11:20 AM EST us Elysia Coffman MD LAB BLOOD ORDERAB LES Final Result [facility] [address] [place] [phone] * Chlamydia/N. Gonorrhoeae RNA, TMA, Urogenitial (07/27/2023 10:08 AM EST) [facility] CT PCR NOT DETECTED Not Detect. [facility] Comment:A not detected test result does [...] psychologicalconsequences. NG PCR NOT DETECTED Not Detect. [facility] Comment:A not detected test result does [...] AM EST 07/27/2023 11:20 AM EST Narrative [facility] - 07/27/2023 1:26 PM EST Urine us Elsyia Coffman MD LAB MICROBIOLOGY - GENERAL ORDERABLES Final Result Performing Organization Address [facility]/ZIP Co de Phone Number [facility] [address] [place] [phone] * HIV-1/2 Antigen and Antibodies, Fourth Generation, with Reflexes (07/27/2023 10:08 AM EST) HIV AB/AG Nonreactive Nonreactive [facility] Comment:HIV-1 p24 Ag and/or HIV-1/HIV-2 Ab not detected.A test result that is nonreactive does not exclude thepossibility of exposure to or infection with HIV-1 and/orHIV-2. Nonreactive results in this assay for individualswith prior exposure to HIV-1 and/or HIV-2 may be due toantigen and antibody levels that are below the limit ofdetection of this assay.The Factual HIV Ag/Ab Combo assay result andsupplemental assay results should be interpreted inconjunction with the patient's clinical presentation,history and other laboratory results. If the results areinconsistent with clinical evidence, additional testing issuggested to confirm the result. Blood Venous blood specimen / Unknown 07/27/2023 10:08 AM EST 07/27/2023 11:20 AM EST us Elysia Coffman MD LAB BLOOD ORDERAB LES Final Result Performing Organization Address City/[facility]/ZIP Co de Phone Number [facility] [address] [place] [phone] from Last 3 Months or Most Recently Relevant to Health Maintenance Insurance [facility] C3 Care Teams Wax Pattern Repairer Relationship Specialty Start Date End Date Elysia Arguello MD [address] [place] [phone] PCP - General Internal Medicine 06/04/23
--- OUTSIDE RECORDS SUMMARY | 2025-06-19 02:32 | XMS_ITS | Encounter Summary ---
Author Organization [employer] Address [address] [facility] [address] [place] [address] Care Team Providers Care Bottle House Cleaners Supervisor Name Role Phone Elysia Arguello MD Primary [...] documented as of this encounter Care Teams Bottle House Cleaners Supervisor Relationship Specialty Start Date End Date Elysia Arguello MD [address] [place] [phone] PCP - General Internal Medicine 06/04/23 documented as of this encounter
--- OUTSIDE RECORDS SUMMARY | 2025-06-19 02:32 | XMS_ITS | Encounter Summary ---
Author Organization [employer] Address [address] [facility] [address] [place] [address] Care Team Providers Care Federal Law Clerk Name Role Phone Elysia Arguello MD Primary Care Pro vider Encounter Details Date Type Department Care Team (Late st Contact Info) Description 06/18/2025 Results Follow-Up [facility] [address] [place] [address] rPiyanka Bellamy NP [address] [place] [address] XR Shoulder 2+ Views Right Social History Tobacco Use Types Packs/Day Years [...] documented as of this encounter Care Teams Federal Law Clerk Relationship Specialty Start Date End Date Elysia Arguello MD [address] [place] [phone] PCP - General Internal Medicine 06/04/23 documented as of this encounter
[2025-06-19] MEDS: Sucralfate Oral Suspension 1 GM/10 ML ORAL.SUSP PO (02:50)
[2025-06-19 04:48] LABS: Cannabinoid Screen Urine POSITIVE (Not Detect)
--- NOTE | 2025-06-19 06:05 | PC.NURSE ---
pt laying on the stretcher, reporting he feels better. agreed to change into regular hospital attire at this time. denies SI/HI. curious about panic/anxiety attacks and if he has been having them for years and didnt know. pt is calm and cooperative, more talkative with staff during this encounter
[2025-06-19 12:01] LABS: Appearance Urine Clear; Glucose Urine UA Negative (Negative); PH 6.0 (5.0-9.0); Specific Gravity - Urine >= 1.030 (1.005-1.025); UMIC TRIGGER UACC YES
--- NOTE | 2025-06-19 12:57 | HO.PSYADMNOT ---
HPI Date of Service: 06/19/25 Chief Complaint: CHEST & THROAT TIGHTNESS Sources of Information: patient interviewed, chart reviewed and crisis/core team assessment reviewed Diagnostics Vital Signs (24Hr): Vital Signs - 24 hr 06/19/25 00:05 06/19/25 02:09 06/19/25 06:50 Temperature 98.1 F 98.7 F Pulse Rate 100 100 100 Respiratory Rate 16 20 20 Blood Pressure 130/77 131/71 130/89 Pulse Oximetry 97 96 97 Oxygen Delivery Method Room Air Room Air Room Air 06/19/25 09:47 Temperature 98.2 F Pulse Rate 106 H Respiratory Rate Blood Pressure 119/70 Pulse Oximetry 98 Oxygen Delivery Method Room Air BMI result Body Mass Index 24.4 Labs 06/19/25 00:59 06/19/25 00:59 Labs: Laboratory Results - last 48 hr 06/19/25 06/19/25 00:59 04:30 WBC 8.2 RBC 5.09 Hgb 15.4 Hct 43.9 MCV 86.2 MCH 30.3 MCHC 35.1 RDW 11.8 Plt Count 322 MPV 9.2 L Immature Gran % (Auto) 0.4 Neut % (Auto) 66.3 Lymph % (Auto) 20.8 [place] % (Auto) 11.9 H Eos % (Auto) 0.2 Baso % (Auto) 0.4 Lymph # (Auto) 1.7 [place] # (Auto) 1.0 Eos # (Auto) 0.0 Baso # (Auto) 0.0 Abs Immat Gran (auto) 0.03 Absolute Neuts (auto) 5.4 Absolute Nucleated RBC 0.000 Nucleated RBC % (auto) 0.0 Sodium 141 Potassium 3.6 Chloride 103 Carbon Dioxide 25 Anion Gap 17 BUN 16 Creatinine 1.06 Estim Creat Clear Calc 124.5 Estimated GFR > 60 Random Glucose 85 Calcium 9.8 Total Bilirubin 1.1 H AST 25 ALT 18 Alkaline Phosphatase 58 Troponin I High Sens < 2.7 Total Protein 8.0 Albumin 5.2 H Urine Color Yellow Urine Appearance Clear Urine pH 6.0 Ur Specific [place] >= 1.030 H Urine Protein 30 (1+) H Urine Glucose (UA) Negative Urine Ketones >=80 Urine Blood Negative Urine Nitrite Negative Ur Leukocyte Esterase Negative Urine RBC 0-2 Urine WBC 0-5 Ur Squamous Epith Cells 0-2 Urine Bacteria None Seen Hyaline Casts 0-2 Urine Opiates Screen Not Detected Ur Buprenorphine Scrn Not Detected Ur Oxycodone Screen Not Detected Urine Methadone Screen Not Detected Urine Fentanyl Screen Not Detected Ur Barbiturates Screen Not Detected Ur Phencyclidine Scrn Not Detected Ur Amphetamines Screen Not Detected U Benzodiazepines Scrn Not Detected Urine Cocaine Screen Not Detected U Marijuana (THC) Screen POSITIVE H Ethyl Alcohol < 10 Meds/Allergies Meds Home Medications ?Medication ?Instructions ?Recorded ?Confirmed ?Type No Known Home Meds 06/19/25 06/19/25 History Allergies Allergies Allergy/AdvReac Type Severity Reaction Status Date / Time amoxicillin (AMOXICILLIN) Allergy Unknown HIVES Verified 06/19/25 00:10 Assessment & Plan Statement Statement: I have reviewed the history and physical and performed a pertinent examination on my patient. No changes have occurred unless specified. If the History and Physical was not performed prior to admission, the Hospitalist's service will be consulted for completing the admission physical. Time Spent With Patient Time: Total time managing care of this patient today ____ minutes.
--- NOTE | 2025-06-19 15:06 | HO.PM.IMCN ---
History of Present Illness Data of Consult Service Date: 06/20/25 Primary Care Provider: Unknown Physician HPI Reason for consult: Medical consult 20-year-old with a past medical history of anxiety, depression, and ADHD presented to the ED with chest pain. Per ED notes patient had been smoking marijuana and subsequently developed excessive salivation and right upper chest discomfort. ACS was ruled out with screening labs troponin and EKG as well as a chest x-ray. I have reveal no leukocytosis, no anemia, no electrolyte imbalances, troponin negative, U tox was positive for marijuana ethanol less than 10. Normal sinus rhythm eyes EKG, no acute findings on his chest x-ray. He was evaluated by the CARE team and due to disorganized behavior was found to be appropriate for admission to inpatient psych. On exam he has no medical concerns. Review of Systems Review of Systems: Denies any shortness of breath, chest pain, headaches, dysuria, abdominal pain or discomfort, nausea, vomiting or diarrhea. PMFSH Social History Household Members: None Housing: Other Housing Other:: [facility] supported housing Do you presently have visiting nurse or other home services: No Patient Tobacco Use Status: Never used Tobacco Smoked in Last 30 Days: Yes Second Hand Smoke Exposure: No Currently Displaying Signs/Symptoms of Drug Intoxication Withdrawal: No Have you been hit, kicked, punched, or otherwise hurt by someone within the past year? If so, by whom?: No Do you feel safe in your current relationship?: No Current Relationship Is there a partner from a previous relationship who is making you feel unsafe now?: No Are you made to feel afraid or neglected: No Advance Directives: No Advance Directives Information Provided: Yes Do you have thoughts of harming others: None Do you have a plan to hurt others: No Plan Recently lost weight without trying: No Eating poorly because of decreased appetite: No Nutrition Risks: No Nutritional Risk Poor oral hygiene: No Meds Allergies Allergy/AdvReac Type Severity Reaction Status Date / Time amoxicillin (AMOXICILLIN) Allergy Unknown HIVES Verified 06/19/25 00:10 Active Medications: Current Medications Acetaminophen (Acetaminophen 325 Mg Tablet) 650 mg PO Q6H PRN PRN Reason: Headache/Pain, Scale 1-10 Al Hydroxide/Mg Hydroxide (Magnesium Hydrox/Alum Hydrox 30 Ml Oral.Susp) 30 ml PO Q6H PRN PRN Reason: Heartburn/Nausea Hydroxyzine HCl (Hydroxyzine Hcl 25 Mg Tablet) 25 mg PO Q6H PRN PRN Reason: mild anxiety Magnesium Hydroxide (Milk Of Magnesia 30 Ml Oral.Susp) 30 ml PO DAILY PRN PRN Reason: Constipation Nicotine Polacrilex (Nicotine Polacrilex 2 Mg Gum) 2 mg BUCCAL Q2H PRN PRN Reason: Nicotine Cravings Trazodone HCl (Trazodone Hcl 50 Mg Tablet) 50 mg PO BEDTIME MRX1 PRN PRN Reason: Insomnia Home Medications ?Medication ?Instructions ?Recorded ?Confirmed ?Last Taken ?Type No Known Home Meds 06/19/25 06/19/25 Unknown History Physical Exam Vital Signs and Narrative: Vital Signs: Last Vital Signs Temp 98.2 F 06/19/25 09:47 Pulse 106 H 06/19/25 09:47 Resp 20 06/19/25 06:50 BP 119/70 06/19/25 09:47 Pulse Ox 98 06/19/25 09:47 O2 Del Method Room Air 06/19/25 09:47 BMI result Body Mass Index 24.4 CONST: Alert and oriented, in NAD. Well nourished HEENT: Normocephalic, atraumatic, MMM, Eyes clear, Neck supple RESP: Lungs clear, RRR even and regular HEART:,RRR, S1, S2. No edema GI:Abdomen Soft NT, ND. + BS times four :Deferred SKIN: Warm dry and intact, no visible lesions or rashes NEURO:CN II-XII Intact bilaterally, Sensation intact. Speech clear PSYCH: Normal affect Results Labs 06/19/25 00:59 06/20/25 07:37 Labs: Laboratory Results - last 24 hr 06/19/25 06/19/25 00:59 04:30 MCV 86.2 MCH 30.3 MCHC 35.1 RDW 11.8 Plt Count 322 MPV 9.2 L Immature Gran % (Auto) 0.4 Neut % (Auto) 66.3 Lymph % (Auto) 20.8 [place] % (Auto) 11.9 H Eos % (Auto) 0.2 Baso % (Auto) 0.4 Lymph # (Auto) 1.7 [place] # (Auto) 1.0 Eos # (Auto) 0.0 Baso # (Auto) 0.0 Abs Immat Gran (auto) 0.03 Absolute Neuts (auto) 5.4 Absolute Nucleated RBC 0.000 Nucleated RBC % (auto) 0.0 Anion Gap 17 Estim Creat Clear Calc 124.5 Estimated GFR > 60 Random Glucose 85 Calcium 9.8 Total Bilirubin 1.1 H AST 25 ALT 18 Alkaline Phosphatase 58 Troponin I High Sens < 2.7 Total Protein 8.0 Albumin 5.2 H Urine Color Yellow Urine Appearance Clear Urine pH 6.0 Ur Specific [place] >= 1.030 H Urine Protein 30 (1+) H Urine Glucose (UA) Negative Urine Ketones >=80 Urine Blood Negative Urine Nitrite Negative Ur Leukocyte Esterase Negative Urine RBC 0-2 Urine WBC 0-5 Ur Squamous Epith Cells 0-2 Urine Bacteria None Seen Hyaline Casts 0-2 Urine Opiates Screen Not Detected Ur Buprenorphine Scrn Not Detected Ur Oxycodone Screen Not Detected Urine Methadone Screen Not Detected Urine Fentanyl Screen Not Detected Ur Barbiturates Screen Not Detected Ur Phencyclidine Scrn Not Detected Ur Amphetamines Screen Not Detected U Benzodiazepines Scrn Not Detected Urine Cocaine Screen Not Detected U Marijuana (THC) Screen POSITIVE H Ethyl Alcohol < 10 Assessment and Plan (1) Anxiety: Status: Acute Plan 20-year-old male who was admitted to the ED initially with chest pain which was ruled out for ACS, he presented as disorganized in strongly anxious. Evaluated by care team and found to be appropriate for admission to inpatient psych for treatment. Anxiety/disorganized behavior Treatment per psychiatric team Thank you for allowing me to participate in the care of this patient. Will follow as needed, please notify medical provider with any changes in condition or concerns.
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
[2025-06-20 08:00] VITALS: BP 111/69; PULSE 84; RESP 18; TEMP 35.8; O2SAT 100
[2025-06-20 08:08] LABS: Alanine Aminotransferase 19 U/L (0-40); Albumin Level 5.1 g/dL (3.5-5.0); Alkaline Phosphatase 54 U/L (39-117); Anion Gap 15 (12-20); Aspartate Amino Transferase 27 U/L (5-37); Blood Urea Nitrogen 14 mg/dL (9-16); Calcium 9.7 mg/dL (8.4-10.2); Carbon Dioxide 25 mmol/L (22-29); Chloride 106 mmol/L (96-108); Cholesterol 125 mg/dL (<200); Creatinine Clr Calc Pharmacy 117.9; Estimated Glomerular Filt Rate > 60; HDL Cholesterol 38 mg/dL (>40); Potassium 3.8 mmol/L (3.3-5.1); Sodium 142 mmol/L (135-145); Total Protein 7.9 g/dL (6.5-8.0); Triglycerides 49 mg/dL (<150)
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
[2025-06-20 20:00] VITALS: BP 138/84; PULSE 100; RESP 16; TEMP 36.5; O2SAT 95
[2025-06-21 07:00] VITALS: BMI 23.9
[2025-06-21 07:10] VITALS: BP 109/60; PULSE 69; RESP 14; TEMP 36.6; O2SAT 99
--- NOTE | 2025-06-21 09:20 | P.PNPSI_ITS ---
Subjective Subjective Date of Service: 06/21/25 Reason For Visit: crisis Subjective Notes: Conditional Voluntary Interim History: Chart reviewed, case discussed w/ team per team mtg- pt made sharp objects from pens & utensils and the items were removed yesterday Pt was sitting at the desk in his room, building a large shoe out of paper, which he decorated with some pics that he tore out of the booklet he received on admission. He reports that he made a pirate ship yesterday out of a tissue box, which was taken from his room. He noted that a comb had also been removed from his room but he got another one and was chewing on one of the comb teeth. He cooperated with handing me the comb pieces that he had been sitting on. Denied wanting to harm himself with the objects. t/w walked pt to the OT room, where he picked out some coloring pages and crayons. He reports that his anxiety is better and now that he's feeling better, he'll be able to walk outside and get hit by a bus or get shot in a store. t/w asked if he wants to be harmed/killed or harm himself and he said no, but it's a dangerous world. Reports good sleep/appetite Denies significant nausea Medication Compliance: Yes (received .5 mg lorazepam at 9 this am) Side effects from medications: No Attending Groups: No Mental Status Exam Mental Status Exam Narrative: Appearance: Fair grooming. Generally good eye contact Attitude: Cooperative, engaging Speech: Fluent and wnl in regard to volume, tone, prosody Motor activity: Calm and without any tics, tremors or dyskinesias. Steady gait Mood: 'better' Affect: appropriate, reactive, brightens up appropriately Thought process: generally goal directed Thought content: odd statements at times, otherwise logical Perception: Denies AH/VH. Did talk to himself briefly Alert/oriented in all spheres Memory: Grossly intact for recent/remote events Insight: intact Judgment: fair Diagnostics Vital Signs (24Hr): Vital Signs - 24 hr 06/20/25 20:00 06/21/25 07:10 Temperature 97.7 F 97.9 F Pulse Rate 100 69 Respiratory Rate 16 14 Blood Pressure 138/84 109/60 Pulse Oximetry 95 99 Oxygen Delivery Method Room Air Room Air BMI result Body Mass Index 24.1 Labs 06/19/25 00:59 06/20/25 07:37 Labs: Laboratory Results - last 48 hr 06/19/25 06/20/25 04:30 07:37 Sodium 142 Potassium 3.8 Chloride 106 Carbon Dioxide 25 Anion Gap 15 BUN 14 Creatinine 1.12 Estim Creat Clear Calc 117.9 Estimated GFR > 60 Random Glucose 87 Estimat Average Glucose 91 Hemoglobin A1c % 4.8 Calcium 9.7 Total Bilirubin 0.8 AST 27 ALT 19 Alkaline Phosphatase 54 Total Protein 7.9 Albumin 5.1 H Triglycerides 49 Cholesterol 125 LDL Cholesterol, Calc 78 HDL Cholesterol 38 L Urine Color Yellow Urine Appearance Clear Urine pH 6.0 Ur Specific [place] >= 1.030 H Urine Protein 30 (1+) H Urine Glucose (UA) Negative Urine Ketones >=80 Urine Blood Negative Urine Nitrite Negative Ur Leukocyte Esterase Negative Urine RBC 0-2 Urine WBC 0-5 Ur Squamous Epith Cells 0-2 Urine Bacteria None Seen Hyaline Casts 0-2 Medications Medications Current Medications Acetaminophen (Acetaminophen 325 Mg Tablet) 650 mg PO Q6H PRN PRN Reason: Headache/Pain, Scale 1-10 Al Hydroxide/Mg Hydroxide (Magnesium Hydrox/Alum Hydrox 30 Ml Oral.Susp) 30 ml PO Q6H PRN PRN Reason: Heartburn/Nausea Hydroxyzine HCl (Hydroxyzine Hcl 25 Mg Tablet) 25 mg PO Q6H PRN PRN Reason: nausea and/or mild anxiety Lorazepam (Lorazepam 0.5 Mg Tablet) 0.5 mg PO TID PRN PRN Reason: severe anxiety Lorazepam (Lorazepam 0.5 Mg Tablet) 0.5 mg PO BID [facility] Last Admin: 06/21/25 09:05 Dose: 0.5 mg Magnesium Hydroxide (Milk Of Magnesia 30 Ml Oral.Susp) 30 ml PO DAILY PRN PRN Reason: Constipation Mirtazapine (Mirtazapine 7.5 Mg Tablet) 7.5 mg PO BEDTIME [facility] Last Admin: 06/20/25 21:06 Dose: 7.5 mg Nicotine Polacrilex (Nicotine Polacrilex 2 Mg Gum) 2 mg BUCCAL Q2H PRN PRN Reason: Nicotine Cravings Olanzapine (Olanzapine 5 Mg Tablet) 5 mg PO TID PRN PRN Reason: agitation Ondansetron HCl (Ondansetron Odt 4 Mg Tab.Rapdis) 4 mg TRANSLINGU Q6H PRN PRN Reason: Nausea and Vomiting Last Admin: 06/19/25 19:00 Dose: 4 mg Trazodone HCl (Trazodone Hcl 50 Mg Tablet) 50 mg PO BEDTIME MRX1 PRN PRN Reason: Insomnia Allergies Allergies Allergy/AdvReac Type Severity Reaction Status Date / Time amoxicillin (AMOXICILLIN) Allergy Unknown HIVES Verified 06/19/25 00:10 Assessment & Plan Assessment & Plan (1) PTSD (post-traumatic stress disorder): Status: Acute Code(s): F43.10 - Post-traumatic stress disorder, unspecified (2) Panic attack: Status: Acute Code(s): F41.0 - Panic disorder [episodic paroxysmal anxiety] (3) Chronic major depressive disorder: Status: Acute Code(s): F32.9 - Major depressive disorder, single episode, unspecified (4) Cannabis use disorder, severe, dependence: Status: Acute Code(s): F12.20 - Cannabis dependence, uncomplicated (5) Autism: Status: Acute Code(s): F84.0 - Autistic disorder Plan Mr. Ortega is a 20 yo SWM with h/o PTSD, ASD, depression, anxiety, ADHD and cannabis use d/o who was brought to the ED by ambulance after having a severe panic attack in the setting of cannabis use. His anxiety and GI sx have improved after starting mirtazapine 7.5 mg + 1 mg lorazepam and 4 mg Zofran last night (started on admission). He had not been taking any psychiatric meds as an outpatient for at least 2 yrs. Admit to [facility] for safety and stabilization 15 min safety checks Admission labs/EKG and medical H&P reviewed Will continue mirtazapine 7.5 mg qhs (started on 06/19) Offer prn Zofran 4 mg q 6 hrs for severe nausea and/or vomiting, hydroxyzine 25 mg q 6 hrs prn for anxiety/nausea, trazodone 50 mg qhs prn for insomnia, olanzapine 5 mg tid prn for agitation Start lorazepam .5 mg bid as standing dose, offer additional .5 mg tid prn for severe anxiety 06/21: Anxiety significantly improved, more engaging with t/w. Will continue current med regimen/tx plan for now Reason for continued inpatient stay Substantial Risk for: med/psych decompensation Time Spent With Patient Time: Total time managing care of this patient today __30__ minutes.
[2025-06-21 20:00] VITALS: BP 123/87; PULSE 112; RESP 16; TEMP 36.6; O2SAT 96
[2025-06-22 07:35] VITALS: BP 116/71; PULSE 96; RESP 18; TEMP 36.5; O2SAT 98
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
== END 2025-06-22 12:56 | disposition home or self-care (01) | DRG 754 ==
LOC: HO.ED 06-19 13:13 → HO.PADLT16 06-19 13:17
PROVIDERS: Emergency Medicine; Physician Assistant Medical; Admitting Provider Psychiatry & Neurology Psychiatry; Emergency Provider Emergency Medicine; Visit Provider Psychiatry & Neurology Psychiatry
DX: F32.9 Major depressive disorder, single episode, unspecified (principal); F12.20 Cannabis dependence, uncomplicated; F41.0 Panic disorder [episodic paroxysmal anxiety]; F43.10 Post-traumatic stress disorder, unspecified; F90.9 Attention-deficit hyperactivity disorder, unspecified type; F84.0 Autistic disorder; Z79.899 Other long term (current) drug therapy
CPT/HCPCS: 36415; 71046; 80053; 80061; 80307; 81001; 83036; 84484; 85025; 93005; 99285; S9485

== ENCOUNTER → 2025-06-18 23:58 | Outpatient (BNV) | payer MEDICAID, SELFPAY | PROVIDERS: Emergency Provider Emergency Medicine; Visit Provider Internal Medicine Cardiovascular Disease | DX: R07.9 Chest pain, unspecified (principal) | CPT/HCPCS: 93010 ==

== ENCOUNTER → 2025-06-19 00:50 | Outpatient (BNV) | payer MEDICAID, SELFPAY | PROVIDERS: Visit Provider Radiology Diagnostic Radiology | DX: R07.89 Other chest pain (principal) | CPT/HCPCS: 71046 ==

== ENCOUNTER → 2025-06-19 12:53 | Outpatient (BNV) | payer MEDICAID, SELFPAY | PROVIDERS: Admitting Provider Psychiatry & Neurology Psychiatry; Emergency Provider Emergency Medicine; Visit Provider Nurse Practitioner Family | DX: Z00.8 Encounter for other general examination (principal) | CPT/HCPCS: 99499 ==

== ENCOUNTER → 2025-06-19 12:53 | Outpatient (BNV) | payer OTHER, SELFPAY | PROVIDERS: Admitting Provider Psychiatry & Neurology Psychiatry; Emergency Provider Emergency Medicine; Visit Provider Psychiatry & Neurology Psychiatry | DX: F33.2 Major depressive disorder, recurrent severe without psychotic features (principal); F12.20 Cannabis dependence, uncomplicated; F41.0 Panic disorder [episodic paroxysmal anxiety]; F84.0 Autistic disorder; F43.10 Post-traumatic stress disorder, unspecified | CPT/HCPCS: 99231 ==